=== PATIENT | female | born 1985 | race Caucasian/White ===

== ENCOUNTER 2023-12-01 23:24 | Emergency (ER) | payer BC ==
[~2023-12-01] VITALS: Ht 172.7 cm; Wt 62.7 kg
[2023-12-01] MEDS ORDERED: LACTATED RINGER'S 1,000 ML IV ONE (23:30)
[2023-12-02 00:04] LABS: BASOPHILS 0.6 % (0-2); EOSINOPHILS 1.8 % (0-6); HEMATOCRIT 37.8 % (35.0-50.0); HEMOGLOBIN 12.7 g/dL (12.0-18.0); LYMPHOCYTES 38.3 % (24-44); MCH 30.9 (27-36); MCHC 33.5 g/dl (30-36); MCV 92.1 fl (81-99); MONOCYTES 6.6 % (0-12); NEUTROPHILS 52.7 % (39-80); PLATELET COUNT 345 K/uL (140-440); RDW 13.4 (10.5-15.0)
[2023-12-02] MEDS ORDERED: PROPRANOLOL HCL20 MG PO (00:05)
--- OUTSIDE RECORDS SUMMARY | 2023-12-02 00:05 | XMS ---
PreManage Notification: PATRICE REY [employer] B[employer] Events No recent Security Events currently on file [facility] There are no care providers on record at this time. Alecia has no Care Guidelines for this patient. Tomás VISIT COUNT (12 MO.) 2 DANIEL [facility]ba TOTAL 2 NOTE: Visits indicate total known visits. ED/UCC VISIT TRACKING (12 MO.) 12/01/2023 23:30 [facility] TYPE: Emergency COMPLAINT: - POSS SUIDIDE ATTEMPT 09/14/2023 01:[address] [facility] TYPE: Emergency COMPLAINT: - POSSIBLE OD DIAGNOSES: - Alcohol abuse with intoxication, unspecified - Blood alcohol level of 120-199 mg/100 ml - Hypotension, unspecified - Major depressive disorder, single episode, severe without psychotic features - Other fatigue - Other snf (current) drug therapy - Poisoning by other antiepileptic and sedative-hypnotic drugs, intentional self-harm, initial encounter - Presence of (intrauterine) contraceptive device INPATIENT VISIT TRACKING (12 MO.) No inpatient visits to display in this time frame [email or web address]
[2023-12-02] MEDS ORDERED: HYDROXYZINE HCL25 MG PO (00:06)
[2023-12-02] MEDS ORDERED: FLUOXETINE HCL20 MG PO (00:09)
[2023-12-02 00:18] LABS: BILIRUBIN, URINE NEGATIVE (negative); BLOOD/HGB, URINE NEGATIVE (Negative); KETONE, URINE NEGATIVE (Negative); LEUK ESTERASE, URINE NEGATIVE (negative); NITRITE, URINE NEGATIVE (negative)
[2023-12-02 00:24] LABS: ACETAMINOPHEN 0 ug/mL (10-30); ALBUMIN 3.5 g/dL (3.4-5.0); ALBUMIN/GLOBULIN RATIO 0.92 (1.1-2.4); ALCOHOL, MEDICAL 175 ng/dL (<3); ALKALINE PHOSPHATASE 41 U/L (46-116); ALT (SGPT) 29 U/L (14-59); ANION GAP 17.6 (7-21); AST (SGOT) 35 U/L (15-37); BILIRUBIN, TOTAL 0.9 ng/dL (0.2-1.0); CALCIUM 8.4 mg/dL (8.5-10.1); CARBON DIOXIDE 23 mmol/L (21-32); CHLORIDE 102 mmol/L (98-107); CREATININE, SERUM 0.93 mg/dL (0.55-1.02); GLOMERULAR FILTRATION RATE,EST 48 mL/min (>60); POTASSIUM 4.6 mmol/L (3.5-5.1); PROTEIN, TOTAL 7.3 g/dL (6.4-8.2); SALICYLATE 0.7 mg/dL (2.8-20.0); TSH, 3RD GENERATION 1.752 uIU/mL (0.358-3.740); UREA NITROGEN 12 mg/dL (7-18)
[2023-12-02 00:49] LABS: AMPHETAMINES, URINE NEGATIVE (NEGATIVE); BARBITURATES, URINE NEGATIVE (NEGATIVE); BENZODIAZEPINE, URINE NEGATIVE (NEGATIVE); BUPRENORPHINE, URINE NEGATIVE (NEGATIVE); CANNABINOID, URINE NEGATIVE (NEGATIVE); COCAINE, URINE POSITIVE (NEGATIVE); ECSTASY, URINE POSITIVE (NEGATIVE); FENTANYL, URINE NEGATIVE (NEGATIVE); METHADONE, URINE NEGATIVE (NEGATIVE); OPIATES, URINE NEGATIVE (NEGATIVE); OXYCODONE, URINE NEGATIVE (NEGATIVE); PHENCYCLIDINE, URINE NEGATIVE (NEGATIVE)
--- NOTE | 2023-12-02 17:14 | EKG ---
[facility] [address] [place], [place] [address] Signed Normal sinus rhythm Nonspecific T wave abnormality Abnormal ECG When compared with ECG of 01-DEC-2023 23:57, (Unconfirmed) No significant change was found Confirmed by KIMBERLEE RAMIREZ MD ([id number]) on 12/02/2023 5:14:04 PM Electronically Signed By: KIMBERLEE RAMIREZ 12/02/23 1714 PATIENT NAME: PATRICE REY Electrocardiogram DATE OF : 87 PHYSICIAN: KIMBERLEE RAMIREZ REPORT #: [id number] REPORT IS CONFIDENTIAL AND NOT TO BE RELEASED WITHOUT AUTHORIZATION
--- NOTE | 2023-12-02 17:14 | EKG ---
[facility] [address] [place], [place] [address] Signed Normal sinus rhythm Nonspecific ST and T wave abnormality Abnormal ECG No previous ECGs available Confirmed by KIMBERLEE RAMIREZ MD ([id number]) on 12/02/2023 5:14:23 PM Electronically Signed By: KIMBERLEE RAMIREZ 12/02/23 1714 PATIENT NAME: PATRICE REY Electrocardiogram DATE OF : 87 PHYSICIAN: KIMBERLEE RAMIREZ REPORT #: [id number] REPORT IS CONFIDENTIAL AND NOT TO BE RELEASED WITHOUT AUTHORIZATION
[2023-12-02 18:11] LABS: BASOPHILS 0.5 % (0-2); EOSINOPHILS 1.8 % (0-6); HEMATOCRIT 33.6 % (35.0-50.0); HEMOGLOBIN 11.6 g/dL (12.0-18.0); LYMPHOCYTES 35.5 % (24-44); MCH 31.2 (27-36); MCHC 34.6 g/dl (30-36); MCV 90.1 fl (81-99); MONOCYTES 8.6 % (0-12); NEUTROPHILS 53.6 % (39-80); PLATELET COUNT 277 K/uL (140-440); RBC 3.73 M/ul (4.3-5.7); RDW 13.4 (10.5-15.0)
[2023-12-02 18:28] LABS: ALBUMIN 3.3 g/dL (3.4-5.0); ALBUMIN/GLOBULIN RATIO 1.03 (1.1-2.4); ALCOHOL, MEDICAL <3 ng/dL (<3); ALKALINE PHOSPHATASE 41 U/L (46-116); ALT (SGPT) 22 U/L (14-59); ANION GAP 15.4 (7-21); AST (SGOT) 18 U/L (15-37); BILIRUBIN, TOTAL 1.3 ng/dL (0.2-1.0); BUN/CREATININE RATIO 9.09 (6.0-28.6); CALCIUM 8.6 mg/dL (8.5-10.1); CARBON DIOXIDE 24 mmol/L (21-32); CHLORIDE 102 mmol/L (98-107); CREATININE, SERUM 1.21 mg/dL (0.55-1.02); GLOMERULAR FILTRATION RATE,EST 59 mL/min (>60); POTASSIUM 3.4 mmol/L (3.5-5.1); PROTEIN, TOTAL 6.5 g/dL (6.4-8.2); UREA NITROGEN 11 mg/dL (7-18)
[2023-12-02] MEDS ORDERED: QUETIAPINE FUMARATE 25 MG TAB PO ONE (20:45)
[2023-12-03 07:33] VITALS: BP 110/64
== END 2023-12-03 07:35 ==
LOC: ED 23:24 → EDBD 23:30 → ED 12-03 07:35
PROVIDERS: Emergency Medicine; Internal Medicine
DX: T43.592A Poisoning by other antipsychotics and neuroleptics, intentional self-harm, initial encounter (principal); R53.83 Other fatigue; F10.129 Alcohol abuse with intoxication, unspecified; R45.851 Suicidal ideations; Z79.899 Other long term (current) drug therapy
CPT/HCPCS: 36415; 80053; 80307; 81003; 84443; 84703; 85025; 93005; 93010; A9270; G0480; J7121